=== PATIENT | male | born 1990 | race Caucasian/White ===

== ENCOUNTER 2023-12-06 09:29 | Outpatient (AMB) | payer OTHER, SELFPAY ==
--- NOTE | 2023-12-06 09:45 | A.OFFPC_ITS ---
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 Allergies No Known Allergies Allergy (Verified 12/06/23 09:45) Medication List - Last Reconciled 12/08/23 by Jeanine Escobar MD loratadine (Claritin) 10 mg PO DAILY Tobacco use date assessed: 12/06/23 Dental Screening Dental Screen Date: 12/06/23 Did you have a dental problem in the last 6 months where you did not have access to dental care?: No Was dental information given to patient?: Patient has dentist HPI HPI Comments History of Present Illness Details The patient is a 33 year old male with a past medial history of abdominal pain presenting to [facility]. Moved to [facility] about 3 months ago. 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 Happens at least a few times weekly. Worsens when seated. Mostly right lower quadrant. Had prior evaluation with ultrasound after worry for appendix. Reports softer than normal stools without diarrhea. Has not noticed blood in the in the stool. Denies nausea, vomiting. Notes 3-4 considerable episodes of gastroenteritis in the past year. Denies abnormal weight loss. History of melanoma in 2012. Has followed with dermatology every 6 months. needs derm in area. 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 1. Little interest or pleasure in doing things: not at all 2. Feeling down, depressed, or hopeless: not at all 3. Trouble falling or staying asleep, or sleeping too much: not at all 4. Feeling tired or having little energy: not at all 5. Poor appetite or overeating: not at all 6. Feeling bad about yourself - or that you are a failure or have let yourself or your family down: not at all 7. Trouble concentrating on things, such as reading the newspaper or watching television: not at all 8. Moving or speaking so slowly that other people could have noticed. Or the opposite - being so fidgety or restless that you have been moving around a lot more than usual: not at all 9. Thoughts that you would be better off or of hurting yourself in some way: not at all Total score: 0 Depression Screening Interpretation: Negative (neg) Depression Screening Done: Yes 87031 - PHQ-9 Billing: Yes Source: Developed by Drs. Alvarez Pantoja, Karina Griffiths, Brett Clancy and colleagues, with an educational javier from [employer]. Thrive Questionnaire Date Thrive assessed: 12/06/23 I am a: Patient What is your living situation today?: I have a steady place to live Within the past 12 months, did the food you bought not last and you didn't have the money to get more?: Never true Within the past 12 months, did you worry whether your food would run out before you got money to buy more?: Never true Do you have trouble paying for medicines?: No Do you have trouble getting transportation to medical appointments?: No Do you have trouble paying your heating and electricity bill?: No Do you have trouble taking care of your child, family member or friend?: No Do you have trouble with day-to-day activities such as bathing, preparing meals, shopping, managing finances, etc.?: No Are you currently unemployed and looking for a job?: No Are you interested in more education?: No Please select the resources that you would like help with: None THRIVE Score: 0 AUDIT C Alcohol Use Questionnaire (AUDIT-C) 1. How often do you have a drink containing alcohol?: 2-3 times a week 2. How many drinks containing alcohol do you have on a typical day when you are drinking?: 1 or 2 3. How often do you have six or more drinks on one occasion?: Never Total Score: 3 COURTNEY-7 AMB Questionnaire COURTNEY-7 Date COURTNEY - 7 assessed: 12/06/23 Feeling nervous, anxious, or on edge: 1 = Several days Not being able to stop or control worryin = Not at all Worrying too much about different things: 0 = Not at all Trouble relaxin = Several days Being so restless that it is hard to sit still: 0 = Not at all Becoming easily annoyed or irritable: 0 = Not at all Feeling afraid as if something awful might happen: 0 = Not at all Total COURTNEY-7 score (0-4 normal; 5-9 mild; 10-14 moderate; 15-21 severe): 2 Source: Developed by Drs. Alvarez Pantoja, Karina Griffiths, Brett Clancy and colleagues, with an educational javier from [employer]. COURTNEY-7 Assessment Billing COURTNEY-7 Assessment Tool: COURTNEY-7 Assessment 85141 Review of Systems Const Details: ROS CONSTITUTIONAL: Denies weight loss, fever and chills. HEENT: Denies changes in vision and hearing. RESPIRATORY: Denies SOB and cough. CV: Denies palpitations and CP GI: see HPI : Denies dysuria and urinary frequency. MSK: Denies new myalgia and joint pain. SKIN: Denies rash and pruritus. NEUROLOGICAL: Denies headache PSYCHIATRIC: Denies recent changes in mood. Physical exam (Primary Care) Vital Signs: Last Vital Signs Temp 97.7 F 12/06/23 09:48 Pulse 67 12/06/23 09:48 BP 120/88 12/06/23 09:48 Pulse Ox 96 12/06/23 09:48 Oxygen Delivery Method Room Air 12/06/23 09:48 PHYSICAL EXAM: GENERAL: Alert and oriented x 3. NAD EYES: EOMI. Anicteric. HENT: Moist mucous membranes. No scleral icterus. No cervical lymphadenopathy. LUNGS: Clear to auscultation bilaterally. CARDIOVASCULAR: Regular rate and rhythm. No murmur. No JVD. ABDOMEN: Soft, non-tender to pallpation EXTREMITIES: No edema. Non-tender. SKIN: No rashes or lesions. Warm. NEUROLOGIC: No focal neurological deficits. CN II-XII grossly intact PSYCHIATRIC: Cooperative. Appropriate mood and affect BMI result Body Mass Index 25.7 Tobacco/Smoking Status: Tobacco use Status Tobacco use date assessed 12/06/23 12/06/23 09:52 Patient Tobacco Use Status Never used Tobacco 12/06/23 09:53 e-Cigarette/Vaping Use Never Used 12/06/23 09:53 PHQ-9: PHQ-9 Score PHQ-9: Total score 0 12/06/23 10:18 Depression Screening Interpretation: Negative (neg) Thrive Assessment: Date of Thrive Assessment Date Thrive assessed 12/06/23 12/06/23 10:16 Assessment and Plan Assessment & Plan (1) Physical exam, annual: Code(s): Z00.00 - Encounter for general adult medical examination without abnormal findings Plan: The patient was evaluated today for annual preventive exam He was counseled about healthy lifestyle habits, including: Smoking cessation Limiting alcohol intake Receiving age-appropriate immunizations at recommended intervals Recommended screening in men includes: Human immunodeficiency virus infection in all men Hypertension in all men Diabetes mellitus Prostate cancer Colorectal cancer Lung cancer in menwith a history of tobacco use (2) Encounter to establish care: Code(s): Z76.89 - Persons encountering health services in other specified circumstances (3) Right lower quadrant pain: Code(s): R10.31 - Right lower quadrant pain Orders: Orders H pylori Ag Stool 12/06/23 R10.31 - Right lower quadrant pain, Z87.19 - Personal history of other diseases of the digestive system Pancreatic Elastase-1 12/06/23 R10.31 - Right lower quadrant pain, Z87.19 - Personal history of other diseases of the digestive system Celiac Disease Panel 12/06/23 R10.31 - Right lower quadrant pain, Z87.19 - Personal history of other diseases of the digestive system Comprehensive Met. Panel 12/06/23 R10.31 - Right lower quadrant pain, Z87.19 - Personal history of other diseases of the digestive system Amylase 12/06/23 R10.31 - Right lower quadrant pain, Z87.19 - Personal history of other diseases of the digestive system Calprotectin, Fecal 12/06/23 R10.31 - Right lower quadrant pain, Z87.19 - Personal history of other diseases of the digestive system CT abdomen pelvis wo/w IV con 12/06/23 R10.31 - Right lower quadrant pain, Z87.19 - Personal history of other diseases of the digestive system Lipid Panel 12/06/23 R10.31 - Right lower quadrant pain, Z87.19 - Personal history of other diseases of the digestive system Lipase 12/06/23 R10.31 - Right lower quadrant pain, Z87.19 - Personal history of other diseases of the digestive system Complete Blood Count Auto Diff 12/06/23 Z00.00 - Encounter for general adult medical examination without abnormal findings, Z87.19 - Personal history of other diseases of the digestive system Referrals Dermatology Referral Z85.820 - Personal history of malignant melanoma of skin Coding Level of Care Code Est Pt Prev Care 18-39y(14425) Diagnoses Physical exam, annual Z00.00 Encounter to establish care Z76.89 Right lower quadrant pain R10.31 Additional Codes COURTNEY-7 Assessment Billing - COURTNEY-7 Assessment Tool: COURTNEY-7 Assessment 23247 ([id number])
[2023-12-06 09:48] VITALS: BP 120/88; PULSE 67; TEMP 36.5; O2SAT 96; BMI 25.7
== END 2023-12-06 10:45 | disposition home or self-care (01) ==
PROVIDERS: PCP Internal Medicine; Visit Provider Internal Medicine
DX: Z00.00 Encounter for general adult medical examination without abnormal findings (principal); Z76.89 Persons encountering health services in other specified circumstances; R10.31 Right lower quadrant pain
CPT/HCPCS: 99395

== ENCOUNTER 2023-12-06 10:51 | Outpatient (REF) | payer OTHER, SELFPAY ==
[2023-12-06 14:31] LABS: MANUAL DIFF FLAG NO
[2023-12-06 14:37] LABS: Basophils Absolute Auto 0.1 X10*3/uL (0.0-0.2); Basophils Percent Auto 0.8 % (0-2); Eosinophils Absolute Auto 0.2 X10*3/uL (0.0-0.4); Eosinophils Percent Auto 2.4 % (0-4); Hematocrit 46.1 % (42.0-52.0); Hemoglobin 15.7 g/dl (14.0-18.0); Imm Gran Abs Auto 0.02 X10*3/uL (0.00-0.03); Imm Gran Pct Auto 0.3 % (0.0-0.4); Lymphocytes Absolute Auto 2.5 X10*3/uL (1.2-4.9); Lymphocytes Percent Auto 38.1 % (20-40); Mean Corpuscular HGB Conc 34.1 g/dl (31.0-36.0); Mean Corpuscular Hemoglobin 31.7 pg (27.0-33.0); Mean Corpuscular Volume 92.9 fL (80.0-98.0); Mean Platelet Volume 10.8 fL (9.4-12.4); Monocytes Absolute Auto 0.7 X10*3/uL (0.1-1.2); Monocytes Percent Auto 10.5 % (2-11); Neutrophils Absolute Auto 3.2 x10*3/uL (2.0-8.3); Neutrophils Percent Auto 47.9 % (45-73); Platelet Count 248 X10*3/uL (160-400); Red Blood Count 4.96 X10*6/uL (4.60-5.80); Red Cell Distribution Width 12.3 % (11.0-16.0); White Blood Count 6.6 X10*3/uL (4.8-10.8)
[2023-12-06 14:50] LABS: Alanine Aminotransferase 25 U/L (0-40); Albumin Level 4.7 g/dL (3.5-5.0); Alkaline Phosphatase 75 U/L (39-117); Amylase 54 U/L (28-100); Anion Gap 14 (12-20); Aspartate Amino Transferase 23 U/L (5-37); Bilirubin Total 0.5 mg/dL (0.0-1.0); Blood Urea Nitrogen 15 mg/dL (9-16); Calcium 9.4 mg/dL (8.4-10.2); Carbon Dioxide 26 mmol/L (22-29); Chloride 105 mmol/L (96-108); Cholesterol 174 mg/dL (<200); Estimated Glomerular Filt Rate > 60; Glucose Random 86 mg/dL (60-115); HDL Cholesterol 43 mg/dL (>40); LDL Cholesterol Calculated 115 mg/dL (<100); Lipase 23 U/L (8-78); Sodium 141 mmol/L (135-145); Total Protein 7.4 g/dL (6.5-8.0); Triglycerides 84 mg/dL (<150)
[2023-12-09 17:03] LABS: Immunoglobulin A 187 mg/dL (47-310); Transglutaminase IgA <1.0 U/mL
== END 2023-12-06 10:52 | disposition home or self-care (01) ==
LOC: HO.WFDLDS 10:51
PROVIDERS: Visit Provider Internal Medicine
DX: Z00.00 Encounter for general adult medical examination without abnormal findings (principal); R10.31 Right lower quadrant pain; Z87.19 Personal history of other diseases of the digestive system
CPT/HCPCS: 36415; 80053; 80061; 82150; 82784; 83690; 85025; 86364

== ENCOUNTER 2023-12-18 11:48 | Outpatient (REF) | payer OTHER, SELFPAY ==
[2023-12-25 21:39] LABS: Calprotectin, Fecal 9 mcg/g
[2023-12-27 16:44] LABS: Pancreatic Elastase-1 >500 mcg/g
== END 2023-12-18 11:49 | disposition home or self-care (01) ==
LOC: HO.LNP 11:48
PROVIDERS: Visit Provider Internal Medicine
DX: Z87.19 Personal history of other diseases of the digestive system (principal); R10.31 Right lower quadrant pain
CPT/HCPCS: 82656; 83993; 87338

== ENCOUNTER 2024-02-13 09:49 | Outpatient (REF) | payer OTHER, SELFPAY ==
--- NOTE | ~2024-02-13 | CT_ITS ---
EXAMINATION: CT ABDOMEN AND PELVIS WITH CONTRAST CLINICAL INFORMATION: Personal history of other diseases of the digestive system. COMPARISON: None available. TECHNIQUE: Multidetector volumetric images were obtained from the superior aspect of the liver through the pubic symphysis following administration 85 mL of Omnipaque 350 intravenous contrast. Sagittal and coronal reformatted images were obtained on the technologist's workstation. Oral contrast: Yes This CT examination was performed using dose optimization techniques as appropriate, variously including the following: *Automated exposure control *Adjustment of mA and/or kV according to patient size (this includes techniques or standardized protocols for targeted exams where dose is matched to indication/reason for exam; i.e. extremities or head) *Use of iterative reconstruction technique DLP: 85 mGy-cm FINDINGS: LUNG BASES: The visualized lung bases are unremarkable. LIVER, GALLBLADDER, AND BILIARY TREE: The liver is normal in size, shape, and attenuation. No focal hepatic lesion or biliary ductal dilatation is present. The gallbladder is unremarkable with no evidence of radiopaque gallstones, gallbladder wall thickening, or obvious pericholecystic inflammatory changes. PANCREAS: No discrete pancreatic mass or pancreatic ductal dilatation. SPLEEN: The spleen appears normal. ADRENAL GLANDS: 2.2 cm homogeneous low-attenuation nodule in the right adrenal gland is nonspecific by portal venous phase imaging. This is likely an adrenal adenoma. KIDNEYS AND URETERS: The kidneys are normal in size, shape, and attenuation. No hydronephrosis, hydroureter, or calculi seen. No perinephric stranding. BLADDER: Unremarkable. GASTROINTESTINAL TRACT: Small and large bowel are normal in caliber. The small and large bowel are normal in caliber. No evidence of bowel obstruction. No focal bowel wall thickening. No acute inflammatory changes. ABDOMINAL WALL: No significant hernia is appreciated. LYMPH NODES: No pathologically enlarged lymph nodes. VASCULAR: No aortic aneurysm. PELVIC VISCERA: Unremarkable. OSSEOUS STRUCTURES: No destructive osseous lesions. CT/CT abdomen pelvis w IV con IMPRESSION: No acute inflammatory changes in the abdomen/pelvis. Mild colonic diverticulosis without evidence of acute diverticulitis. 2.2 cm probable benign adenoma in the right adrenal gland. Recommend adrenal washout CT or chemical shift MRI. Fleischner guidelines were followed. Electronically signed by: Kenan Jarvis MD 02/24/2024 11:22 AM EDT
[2024-02-13] MEDS: iohexoL 350 MG/ML 100 ML INFUS..BTL IV (10:22)
== END 2024-02-13 09:50 | disposition home or self-care (01) ==
LOC: HO.CT 09:49
PROVIDERS: PCP Internal Medicine; Visit Provider Internal Medicine
DX: R10.31 Right lower quadrant pain (principal); Z87.19 Personal history of other diseases of the digestive system
CPT/HCPCS: 74177; Q9967

== ENCOUNTER 2024-03-13 10:19 | Outpatient (AMB) | payer OTHER, SELFPAY ==
--- NOTE | 2024-03-13 10:21 | A.OFFPC_ITS ---
Intake Visit Reasons: review results Intake Note: Patient would like to discuss his results today. 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 Happens at least a few times weekly. Worsens when seated. Mostly right lower quadrant. Had prior evaluation with ultrasound after worry for appendix pathology. Reports softer than normal stools without diarrhea. Has not noticed blood in the in the stool. Denies nausea, vomiting. Notes 3-4 considerable episodes of gastroenteritis in the past year. Denies abnormal weight loss. Labs and stool studies were normal. CT abd/pelvis with mild diverticulosis and likely benign right adrenal adenoma. History of melanoma in 2012. 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 Alvarez Pantoja, Karina Griffiths, Brett Clancy and colleagues, with an educational javier from [employer]. Physical exam (Primary Care) Tobacco/Smoking Status: Tobacco use Status Tobacco use date assessed 12/06/23 03/13/24 10:23 Patient Tobacco Use Status Never used Tobacco 03/13/24 10:23 e-Cigarette/Vaping Use Never Used 03/13/24 10:23 Thrive Assessment: Date of Thrive Assessment Date Thrive assessed 12/06/23 03/13/24 10:23 Telehealth Telehealth Telehealth Platform: Telephone Location of provider rendering services: practice address Location of patient: address on file Patient Identification confirmed using: Name, : Yes Telehealth method: voice only Patient verbally consented to treatment: Yes Patient verbally consented to billing insurance company: Yes Patient informed of any privacy concerns related to visit: Yes Minutes spent on Phone/Video with Pt.: 25 Assessment and Plan Assessment & Plan (1) Right lower quadrant pain: Code(s): R10.31 - Right lower quadrant pain Plan: Reviewed labs, imaging. Discussed could be having episodes of diverticular pain at times but may have no relations and pain could be more consistent with IBS etc. He declines GI referral at present. For benign appearing mass of the adrenal MRI has been recommended and is ordered. (2) Adrenal adenoma: Code(s): D35.00 - Benign neoplasm of unspecified adrenal gland Qualifiers: Laterality: right Qualified Code(s): D35.01 - Benign neoplasm of right adrenal gland (3) History of gastroenteritis: Code(s): Z87.19 - Personal history of other diseases of the digestive system Orders: Orders MR abdomen wo/w con 03/13/24 D35.00 - Benign neoplasm of unspecified adrenal gland Coding Level of Care Code Tele Est Pt Level 3 (14166) Diagnoses Right lower quadrant pain R10.31 Adenoma of right adrenal gland D35.01 Laterality: right History of gastroenteritis Z87.19
== END 2024-03-13 10:35 | disposition home or self-care (01) ==
LOC: HO.HMGFM 10:19
PROVIDERS: PCP Internal Medicine; Visit Provider Internal Medicine
DX: R10.31 Right lower quadrant pain (principal); D35.01 Benign neoplasm of right adrenal gland; Z87.19 Personal history of other diseases of the digestive system
CPT/HCPCS: 99213

== ENCOUNTER 2024-05-23 16:12 | Outpatient (REF) | payer OTHER, SELFPAY ==
[2024-05-23] MEDS: gadobutroL 10 ML VIAL IVPUSH (16:35)
== END 2024-05-23 16:13 | disposition home or self-care (01) ==
LOC: HO.MRI 16:12
PROVIDERS: PCP Internal Medicine; Visit Provider Internal Medicine
DX: D35.00 Benign neoplasm of unspecified adrenal gland (principal)
CPT/HCPCS: 74183; A9585

== ENCOUNTER 2024-09-11 07:52 | Outpatient (AMB) | payer OTHER, SELFPAY ==
--- NOTE | 2024-09-11 07:54 | MHC.OFFVIS ---
Vital Signs 09/11/24 07:55 Height 6 ft 3.98 in Weight 204 lb 5.896 oz BMI 24.9 BP 110/62 Pulse 62 Pulse Source Pulse Oximeter Pulse Oximetry (%) 100 Oxygen Delivery Method Room Air Intake Visit Reasons: Benign neoplasm of right adrenal gland Intake Note: New patient present today for Benign neoplasm of right adrenal gland office visit. Accompanied by: Self / Same As Patient Allergies No Known Allergies Allergy (Verified 09/11/24 07:57) Medication List - Last Reconciled 09/11/24 by Lisbeth Barroso MD loratadine (Claritin) 10 mg PO DAILY HPI Comments Details: 33-year-old male here today for initial evaluation of 2.4 cm right adrenal gland nodule. 02/13/2024: CT of the abdomen pelvis with contrast I reviewed the images which showed a 2.2 cm probably benign adenoma of the right adrenal gland. Low-attenuation nodule per report. 05/23/2024: MRI of the abdomen showed 2.4 X 1.5 cm right adrenal nodule was lost in signal with opposed phase imaging. Symptoms: Pt denies any weight gain,,severe acne ,headaches , , denies any hx of proximal muscle weakness, easy bruisability ,no abdominal striae,no headache,diaphoresis -No high blood pressure. -Denies any polyuria or polydipsia,no history of glucose intolerance,no abdominal pain ,skin infection or hyperpigmentation. -no recent vertebra or fragility fracture -No truncal obesity,facial plethora or recent mood change. No hx of depression. - no episodic palpitaions, pallor, abdominal pain, diaphoresis . -mild loss of libido, but feels a little bit low desire, busy with a toddler -no erectile dysfunction Physical exam General: sitting comfortably in no acute distress HEENT: normocephalic/atraumatic, Neck: supple, symmetrical Cardiac: normal heart sounds Pulm: normal breath sounds B/L, no added breath sounds Abd: not distended, no tenderness, no abdominal striae Extremities: no edema, no signs of myxedema Neuro: AAO x3, Speech: normal, no facial droop, moving all 4 extremities ? Laboratory Tests 12/06/23 10:54 Sodium 141 Potassium 4.0 Creatinine 0.79 Estimated GFR > 60 MR ABDOMEN WITHOUT AND WITH CONTRAST 05/23/24 CLINICAL INFORMATION: Adrenal lesion. COMPARISON: CT abdomen/pelvis February 13, 2024 TECHNIQUE: MR abdomen was performed without and with use of 10 mL intravenous Gadavist gadolinium contrast. Postcontrast images are performed in multiphase dynamic sequences. Imaging was performed in 3 planes. FINDINGS: LUNG BASES: No pleural or pericardial effusion. LIVER, GALLBLADDER, AND BILIARY TREE: The liver is normal in size, smooth in contour, and normal in signal. No focal hepatic lesion or biliary ductal dilatation is present. The gallbladder is contracted. PANCREAS: No ductal dilatation. SPLEEN: Not enlarged. ADRENAL GLANDS: 2.4 x 1.5 cm right adrenal nodule. There is loss in signal with opposed phase imaging. KIDNEYS AND URETERS: The kidneys are normal in size, shape, and enhance symmetrically. No hydronephrosis. No perinephric stranding. GASTROINTESTINAL TRACT: No bowel obstruction. No ascites or fluid collection. LYMPH NODES: No bulky lymphadenopathy. VASCULAR: Normal caliber abdominal aorta. MR/MR abdomen wo/w con IMPRESSION: 2.4 x 1.5 cm right adrenal nodule most likely representing an adenoma. Electronically signed by: Edwardo Cortez MD 07/13/2024 12:24 PM [facility] CT ABDOMEN AND PELVIS WITH CONTRAST 02/13/24 CLINICAL INFORMATION: Personal history of other diseases of the digestive system. COMPARISON: None available. TECHNIQUE: Multidetector volumetric images were obtained from the superior aspect of the liver through the pubic symphysis following administration 85 mL of Omnipaque 350 intravenous contrast. Sagittal and coronal reformatted images were obtained on the technologist's workstation. Oral contrast: Yes This CT examination was performed using dose optimization techniques as appropriate, variously including the following: *Automated exposure control *Adjustment of mA and/or kV according to patient size (this includes techniques or standardized protocols for targeted exams where dose is matched to indication/reason for exam; i.e. extremities or head) *Use of iterative reconstruction technique DLP: 85 mGy-cm FINDINGS: LUNG BASES: The visualized lung bases are unremarkable. LIVER, GALLBLADDER, AND BILIARY TREE: The liver is normal in size, shape, and attenuation. No focal hepatic lesion or biliary ductal dilatation is present. The gallbladder is unremarkable with no evidence of radiopaque gallstones, gallbladder wall thickening, or obvious pericholecystic inflammatory changes. PANCREAS: No discrete pancreatic mass or pancreatic ductal dilatation. SPLEEN: The spleen appears normal. ADRENAL GLANDS: 2.2 cm homogeneous low-attenuation nodule in the right adrenal gland is nonspecific by portal venous phase imaging. This is likely an adrenal adenoma. KIDNEYS AND URETERS: The kidneys are normal in size, shape, and attenuation. No hydronephrosis, hydroureter, or calculi seen. No perinephric stranding. BLADDER: Unremarkable. GASTROINTESTINAL TRACT: Small and large bowel are normal in caliber. The small and large bowel are normal in caliber. No evidence of bowel obstruction. No focal bowel wall thickening. No acute inflammatory changes. ABDOMINAL WALL: No significant hernia is appreciated. LYMPH NODES: No pathologically enlarged lymph nodes. VASCULAR: No aortic aneurysm. PELVIC VISCERA: Unremarkable. OSSEOUS STRUCTURES: No destructive osseous lesions. CT/CT abdomen pelvis w IV con IMPRESSION: No acute inflammatory changes in the abdomen/pelvis. Mild colonic diverticulosis without evidence of acute diverticulitis. 2.2 cm probable benign adenoma in the right adrenal gland. Recommend adrenal washout CT or chemical shift MRI. 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 Current occupational exposures/hazards: No Cognitive needs: No Hearing needs: No Vision needs: No Physical Exam Vital Signs: Last Vital Signs Pulse 62 09/11/24 07:55 BP 110/62 09/11/24 07:55 Pulse Ox 100 09/11/24 07:55 Oxygen Delivery Method Room Air 09/11/24 07:55 BMI result Body Mass Index 24.9 Assessment & Plan Assessment & Plan (1) Adrenal adenoma: Code(s): D35.00 - Benign neoplasm of unspecified adrenal gland Category: Medical Qualifiers: Laterality: right Qualified Code(s): D35.01 - Benign neoplasm of right adrenal gland Plan: --33-year-old male here today for initial evaluation of 2.4 cm right adrenal gland nodule. 02/13/2024: CT of the abdomen pelvis with contrast I reviewed the images which showed a 2.2 cm probably benign adenoma of the right adrenal gland. Low-attenuation nodule per report. 05/23/2024: MRI of the abdomen showed 2.4 X 1.5 cm right adrenal nodule was lost in signal with opposed phased imaging. Our first concern is to be sure that this is not an adrenal cortical carcinoma. ?Fortunately adrenal cortical carcinomas are exceedingly rare. ?However they do carry with them a very poor prognosis.?Given his clinical history with no deterioration in overall health; I have low suspicion for adrenocortical carcinoma to start with. ?Plus given features on the MRI with loss in signal with opposed phase imaging, this is consistent with a benign adenoma. We will plan to repeat imaging in 12 months to check on stability of size in the nodule which would be sometime around May 2025. ?? Another concern of adrenal masses is that they might be metastatic disease from another primary malignancy. ?This seems unlikely in his case. ?He is a lifelong non-smoker. ?A renal cancer which can metastasize to the adrenal glands probably would have been identified on his initial imaging study. ?Usually metastatic disease to the adrenal glands goes to both adrenal glands. ? ? Most adrenal masses are noncancerous or benign adrenal adenomas. ?However they can occasionally be functional and the hormones that are produced can cause clinical problems.??He has not been screened for any hormonal excess; although low clinical suspicion for pheochromocytoma; given the adrenal adenoma in question is greater than 1 cm ; I will err on the side of caution and screen with plasma free metanephrines with his blood work today. ? He does not have hypertension or history of hypokalemia however I will check aldosterone and plasma renin activity . ? We will check a 1 mg overnight dexamethasone suppression test .?However he has no clinical features of Dominique syndrome. ? The greatest likelihood is that this will be a nonfunctional benign adrenal adenoma that does not need to be removed. ?However we want to be careful that we have excluded all the other possibilities?first. ? In a review of published literature,Primary adrenal carcinoma 2 percent, metastases 0.7 percent -Benign Adrenal mass? Nonfunctioning 90%, subclinical [place]?s syndrome 6%, pheochromocytoma 3%, primary aldosteronism 0.6% Plan: -ordered baseline cortisol, acth, DHEA-S, aldosterone, plasma renin activity, BMP, plasma metanephrine and normetanephrine levels -ordered dexamethasone suppression tests -follow up in 4 weeks to discuss results -We will plan to repeat CT scan/MRI in May 2025 Plan I spent 45 minutes in reviewing the record, seeing the patient and documenting in the medical record. Orders: Orders Aldosterone Today D35.01 - Benign neoplasm of right adrenal gland DHEA Sulfate Today D35.01 - Benign neoplasm of right adrenal gland Basic Metabolic Panel Today D35.01 - Benign neoplasm of right adrenal gland Dexamethasone 09/18/24 D35.01 - Benign neoplasm of right adrenal gland Adrenocorticotropic Hormone Today D35.01 - Benign neoplasm of right adrenal gland Renin Today D35.01 - Benign neoplasm of right adrenal gland Metanephrines, Plasma Today D35.01 - Benign neoplasm of right adrenal gland Cortisol Random Today D35.01 - Benign neoplasm of right adrenal gland Cortisol Random 09/18/24 D35.01 - Benign neoplasm of right adrenal gland Adrenocorticotropic Hormone 09/18/24 D35.01 - Benign neoplasm of right adrenal gland Medications: New dexamethasone Take at 11 pm at night and go for blood work at 8 AM the next morning 1 mg PO DAILY 1 tab 0RF Patient Instructions: Do a baseline set of 8 AM blood work today Later next week do another set of blood work for dexamethasone suppression test Dexamethasone suppression test I would like you to do a dexamethasone suppression test to rule out Cushings syndrome. You will take a 1 mg pill of dexamethasone at 11 PM and then have a blood draw for cortisol at 8AM the next morning. It is important to make sure you take the dexamethasone at 11 PM and have the blood test as close to 8AM as possible. Follow up in 4 weeks to discuss results Coding Level of Care Code New Pt Level 4 (07489) Diagnoses Adenoma of right adrenal gland D35.01 Laterality: right Time Spent (min) 45
[2024-09-11 07:55] VITALS: BP 110/62; PULSE 62; O2SAT 100; BMI 24.9
--- OUTSIDE RECORDS SUMMARY | 2024-09-11 07:55 | XMS_ITS | Clinical Summary ---
Author Organization [facility] Address [address] [place], [place] [id number] Phone Care Team Providers Care Group Tester Name Role Phone Jeanine Escobar MD Primary Care Provider [phone] Allergies No known active allergies Medications Medication Sig Dispensed Refills Start Date End Date Status ketoconazole 2 % cream Apply topically daily. 30 g 02/13/2024 Active Active Problems No known active problems Social History Tobacco Use Types Packs/Day Years Used Date Smoking Tobacco: Never Smokeless Tobacco: Never Tobacco Cessation:Counseling Given: Not Answered Education Answer Date Recorded Are you interested in more education? Not on isabel e 02/13/2024 Are you concerned about learning? Not on file 02/13/2024 No 02/13/2024 No 02/13/2024 Digital Access Answer Date Recorded No 02/13/2024 No 02/13/2024 Reliable internet access at home? Not on file 02/13/2024 Device with a working camera? Not on file Sex and Gender Information Value Date Recorded Sex Assigned at Not on file Gender Identity Not on file Sexual Orientation Not on file Last Filed Vital Signs Vital Sign Reading Time Taken Comments Blood Pressure 122/80 04/22/2024 2:16 PM EDT Pulse 71 04/22/2024 2:16 PM EDT Temperature 36.7 ??C (98 ??F) 04/22/2024 2:16 PM EDT Respiratory Rate 16 04/22/2024 2:16 PM EDT Oxygen Saturation 98% 04/22/2024 2:16 PM EDT Inhaled Oxygen Concentration - - Weight - - Height - - Body Mass Index - - Plan of Treatment Health Maintenance Due Date Last Done Comments LIPID PANEL 1988 DEPRESSION SCREENING 2000 HEPATITIS B SCREENING 2006 HEPATITIS C SCREENING 2006 HIV ONE-TIME SCREENING (18-6 5 YEARS) 2006 HEPATITIS B VACCINES (1 of 3 - 19+ 3-dose series) 11/18/2007 02/20/2017, 09/24/2016, 08/27/2016 INFLUENZA VACCINE (#1) 2024 COVID-19 VACCINE ( - 2023-2 5 season) 2024 Adult Td,Tdap Booster 12/27/2026 12/27/2016 MENINGOCOCCAL VACCINES (ACWY) Aged Out 02/05/2013 No longer eligible based on patient's age to complete this topic SMOKING STATUS SCREENING (On ce After 26 Yrs) Completed 04/22/2024 HEPATITIS A VACCINES Aged Out No long er eligible based on patient's age to complete this topic HIB VACCINES Aged Out No longer eligi ble based on patient's age to complete this topic PNEUMOCOCCAL VACCINES (0-49 years) Aged Out No longer eligible b ased on patient's age to complete this topic Medical Devices Not on file Care Teams Group Tester Relationship Specialty Start Date End Date Jeanine Escobar MD [address] [place] [address] PCP - General Internal Medicine 02/13/24 Additional Source Comments The information contained in this document represents components of the legal health record. It is not the complete legal health record.[facility]
--- OUTSIDE RECORDS SUMMARY | 2024-09-11 07:56 | XMS_ITS | Clinical Summary ---
Author Organization [address] [facility] Address [address] [place] [address] Phone Care Team Providers Care Animal Pathology Teacher Name Role Phone Unavailable Primary Care Provider Unavailabl e Encounters Date Type Department Care Team Description 07/08/2024 Lab Requisition [facility] - Main Lab [address] [facility] [place] [address] Maury Ledesma III, MD Localized swelling, mass and lump, trunk from Last 3 Months Social History Tobacco Use Types Packs/Day Years Used Date Smoking Tobacco: Never Assessed Sex and Gender Information Value Date Recorded Sex Assigned at Not on file Legal Sex Male 12:14 PM EST Gender Identity Not on file Sexual Orientation Not on file Plan of Treatment Health Maintenance Due Date Last Done Comments DTaP,Tdap,and Td Vaccines (1 - Tdap) 11/18/2007 Hepatitis B Vaccines (1 of 3 - 19+ 3-dose series) 11/18/2007 COVID-19 Vaccine (2023-2 5 season) 2024 Influenza Vaccine (#1) 2024 Cholesterol Screening (Lipid Panel) 07/08/2024 Depression Screening 07/08/2024 HIV Screening 07/08/2024 Hepatitis C Screening 07/08/2024 Social Influencers of Health Screening 07/08/2024 HIB Vaccines Aged Out No longer eligi ble based on patient's age to complete this topic HPV Vaccines Aged Out No longer eligi ble based on patient's age to complete this topic Hepatitis A Vaccines Aged Out No long er eligible based on patient's age to complete this topic IPV Vaccines Aged Out No longer eligi ble based on patient's age to complete this topic MMR Vaccines Aged Out No longer eligi ble based on patient's age to complete this topic Meningococcal ACWY Vaccine Aged Out N o longer eligible based on patient's age to complete this topic Meningococcal B Vacine Aged Out No lo nger eligible based on patient's age to complete this topic Pneumococcal Vaccine: Pediat rics (0 to 5 Years) and At-Risk Patients (6 to 64 Years) Aged Out No longer eligible b ased on patient's age to complete this topic RSV Immunization Patients Un nyasia 20 months Aged Out No longer eligible b ased on patient's age to complete this topic Varicella Vaccines Aged Out No longer eligible based on patient's age to complete this topic Procedures Procedure Name Priority Date/Time Associated Diagnosis Comments TISSUE EXAM Routine 07/07/2024 Localized swelling, mass and lump, trunk from Last 3 Months Results * Tissue Exam (07/07/2024) Final Diagnosis Skin, Chest, Right, excision: -EPIDERMAL INCLUSION CYST 07/09/2024 11:25 AM [facility] Clinical Information Right chest cyst mass R22.2 07/09/2024 11:25 AM EST [facility] Gross Description A. Chest, Right, cyst: Labeled right chest cyst mass . Received in formalin is an unoriented, 1.9 x 0.6 x 0.5 cm awan-white skin ellipse awan subcutis. The margin is inked blue and the specimen is serially sections. The cut surfaces are yellow and fibrotic with a tiny probable cyst lining. The specimen is submitted in entirety one cassette, five pieces. TS 07/09/2024 11:25 AM [facility] Disclaimer Unless otherwise specified, all tissue is 10% NB formalin fixed and paraffin embedded. 07/09/2024 11:25 AM [facility] Tissue Thoracic structure / Unknown 07/07/2024 07/08/2024 12:18 PM EST us Maury Ledesma III, MD LAB PATHOLOGY ORDERABLES Fi nal Result [facility] [address] [place] [address], [place] [phone] from Last 3 Months Insurance [facility]
--- OUTSIDE RECORDS SUMMARY | 2024-09-11 07:56 | XMS_ITS | Encounter Summary ---
Author Organization [employer] Address [address] [place] [address] Care Team Providers Care Head Of Loss Prevention Name Role Phone Unavailable Primary Care Provider Unavailabl e Encounter Details Date Type Department Care Team (Late st Contact Info) Description 07/08/2024 Lab Requisition [facility] - Main Lab [address] [facility] [place] [address] Maury Ledesma III, MD [address] [place] [address] [place] [phone] Localized swelling, mass and lump, trunk Social History Tobacco Use Types Packs/Day Years Used Date Smoking Tobacco: Never Assessed Sex and Gender Information Value Date Recorded Sex Assigned at Not on file Legal Sex Male 12:14 PM EST Gender Identity Not on file Sexual Orientation Not on file documented as of this encounter Plan of Treatment Not on file documented as of this encounter Procedures Procedure Name Priority Date/Time Associated Diagnosis Comments TISSUE EXAM Routine 07/07/2024 Localized swelling, mass and lump, trunk documented in this encounter Results * Tissue Exam (07/07/2024) Final Diagnosis Skin, Chest, Right, excision: -EPIDERMAL INCLUSION CYST 07/09/2024 11:25 AM EST [facility] Clinical Information Right chest cyst mass R22.2 07/09/2024 11:25 AM [facility] Gross Description A. Chest, Right, [...] cassette, five pieces. TS 07/09/2024 11:25 AM EST [facility] Disclaimer Unless otherwise specified, all tissue is 10% NB formalin fixed and paraffin embedded. 07/09/2024 11:25 AM [facility] Tissue Thoracic structure / Unknown 07/07/2024 07/08/2024 12:18 PM EST us Maury Ledesma III, MD LAB PATHOLOGY ORDERABLES Fi nal Result [facility] [address] [place] [address], documented in this encounter Visit Diagnoses Diagnosis Localized swelling, mass and lump, trunk documented in this encounter
== END 2024-09-11 08:23 | disposition home or self-care (01) ==
LOC: HO.ENCR 07:53
PROVIDERS: PCP Internal Medicine; Visit Provider Student in an Organized Health Care Education/Training Program
DX: D35.01 Benign neoplasm of right adrenal gland (principal)
CPT/HCPCS: 99204

== ENCOUNTER 2024-09-11 07:52 | Outpatient (REF) | payer OTHER, SELFPAY ==
--- OUTSIDE RECORDS SUMMARY | 2024-09-11 08:38 | XMS_ITS | Clinical Summary ---
Author Organization [facility] Address [address] [place], [place] [id number] Phone Care Team Providers Care Glass Rolling Machine Operator Name Role Phone Jeanine Escobar MD Primary Care Provider [phone]- [phone] Allergies No known active allergies Medications Medication [...] Medical Devices Not on file Care Teams Glass Rolling Machine Operator Relationship Specialty Start Date End Date Jeanine Escobar MD [address] [place] [address] PCP - General Internal Medicine 02/13/24 Additional Source Comments The information contained in this document represents components of the legal health record. It is not the complete legal health record.[facility]
--- OUTSIDE RECORDS SUMMARY | 2024-09-11 08:38 | XMS_ITS | Clinical Summary ---
Author Organization [address] [facility] Address [address] [place] [address] Phone Care Team Providers Care Line Worker Name Role Phone Unavailable Primary Care Provider Unavailabl e Encounters Date Type Department Care Team Description 07/08/2024 Lab Requisition [facility] - Main Lab [address] [facility] [place] [address] Maury Ledesma III, MD Localized [...] excision: -EPIDERMAL INCLUSION CYST 07/09/2024 11:25 AM [facility] Clinical Information Right chest cyst mass R22.2 07/09/2024 11:25 AM EST [facility] Gross Description A. Chest, Right, [...] cassette, five pieces. TS 07/09/2024 11:25 AM [facility] Disclaimer Unless otherwise specified, all tissue is 10% NB formalin fixed and paraffin embedded. 07/09/2024 11:25 AM [facility] Tissue Thoracic structure / Unknown 07/07/2024 07/08/2024 12:18 PM EST us Maury Ledesma III, MD LAB PATHOLOGY ORDERABLES Fi nal Result [facility] [address] [place] [address], [place] [phone] from Last 3 Months Insurance [facility]
--- OUTSIDE RECORDS SUMMARY | 2024-09-11 08:38 | XMS_ITS | Encounter Summary ---
Author Organization [employer] Address [address] [place] [address] Care Team Providers Care Senior Sales Associate Name Role Phone Unavailable Primary Care Provider Unavailabl e Encounter Details Date Type Department Care Team (Late st Contact Info) Description 07/08/2024 Lab Requisition [facility] - Main Lab [address] [facility] [place] [address] Maury Ledesma III, MD [address] [place] [address] [place] [phone] Localized swelling, mass and lump, trunk Social [...] -EPIDERMAL INCLUSION CYST 07/09/2024 11:25 AM EST [facility] Clinical Information Right chest cyst mass R22.2 07/09/2024 11:[address] [facility] Gross Description A. Chest, Right, [...] five pieces. TS 07/09/2024 11:25 AM EST [facility] Disclaimer Unless otherwise specified, all tissue is 10% NB formalin fixed and paraffin embedded. 07/09/2024 11:[address] [facility] Tissue Thoracic structure / Unknown 07/07/2024 07/08/2024 12:18 PM EST us Maury Ledesma III, MD LAB PATHOLOGY ORDERABLES Fi nal Result [facility] [address] [place] [address], documented in this encounter Visit Diagnoses Diagnosis Localized swelling, mass and lump, trunk documented in this encounter
[2024-09-11 10:11] LABS: Anion Gap 11 (12-20); Blood Urea Nitrogen 22 mg/dL (9-16); Calcium 9.5 mg/dL (8.4-10.2); Carbon Dioxide 28 mmol/L (22-29); Chloride 106 mmol/L (96-108); Estimated Glomerular Filt Rate > 60; Glucose Random 87 mg/dL (60-115); Potassium 4.5 mmol/L (3.3-5.1); Sodium 140 mmol/L (135-145)
[2024-09-11 10:42] LABS: Cortisol Random 7.5 ug/dL
[2024-09-12 10:53] LABS: DHEA Sulfate 116 mcg/dL (93-415)
[2024-09-15 15:43] LABS: Adrenocorticotropic Hormone 6 pg/mL (6-50)
[2024-09-16 13:08] LABS: Metanephrine, Free 33 pg/mL (<=57); Normetanephrines, Free 33 pg/mL (<=148); Total Metanephrine, Free 66 pg/mL (<=205)
[2024-09-19 11:04] LABS: Renin 0.89 ng/mL/h (0.25-5.82)
== END 2024-09-11 07:53 | disposition home or self-care (01) ==
LOC: HO.LAB 07:52
PROVIDERS: PCP Internal Medicine; Visit Provider Student in an Organized Health Care Education/Training Program
DX: D35.01 Benign neoplasm of right adrenal gland (principal)
CPT/HCPCS: 36415; 80048; 82024; 82088; 82533; 82627; 83835; 84244

== ENCOUNTER 2024-09-19 08:02 | Outpatient (REF) | payer OTHER, SELFPAY ==
[2024-09-19 09:23] LABS: Cortisol Random < 1.0 ug/dL
[2024-09-23 14:58] LABS: Adrenocorticotropic Hormone <5 pg/mL (6-50)
[2024-10-06 08:18] LABS: Dexamethasone 193 ng/dL
== END 2024-09-19 08:03 | disposition home or self-care (01) ==
LOC: HO.LAB 08:02
PROVIDERS: PCP Internal Medicine; Visit Provider Student in an Organized Health Care Education/Training Program
DX: D35.01 Benign neoplasm of right adrenal gland (principal)
CPT/HCPCS: 36415; 80299; 82024; 82533

== ENCOUNTER 2024-10-12 08:10 | Outpatient (AMB) | payer OTHER, SELFPAY ==
[2024-10-12 08:13] VITALS: BP 124/78; PULSE 87; O2SAT 98; BMI 25.1
--- NOTE | 2024-10-12 08:13 | A.OFFVIS_ITS ---
Vital Signs 10/12/24 08:13 Height 6 ft 3.98 in Weight 205 lb 14.588 oz BMI 25.1 BP 124/78 Blood Pressure Location Lt brachial Position Sitting Pulse 87 Pulse Source Pulse Oximeter Pulse Oximetry (%) 98 Oxygen Delivery Method Room Air Intake Visit Reasons: Benign neoplasm of right adrenal gland Intake Note: Patient present today for benign neoplasm of right adrenal gland. Master At Arms Required: No Accompanied by: Self / Same As Patient Allergies No Known Allergies Allergy (Verified 10/12/24 08:18) HPI Comments Details: 33-year-old male here today for follow up of 2.4 cm right adrenal gland nodule. HPI from inital visit 02/13/2024: CT of the abdomen pelvis with contrast I reviewed the images which showed a 2.2 cm probably benign adenoma of the right adrenal gland. Low- attenuation nodule per report. 05/23/2024: MRI of the abdomen showed 2.4 X 1.5 cm right adrenal nodule was lost in signal with opposed phase imaging. Symptoms: Pt denies any weight gain,,severe acne ,headaches , , denies any hx of proximal muscle weakness, easy bruisability ,no abdominal striae,no headache,diaphoresis -No high blood pressure. -Denies any polyuria or polydipsia,no history of glucose intolerance,no abdominal pain ,skin infection or hyperpigmentation. -no recent vertebra or fragility fracture -No truncal obesity,facial plethora or recent mood change. No hx of depression. - no episodic palpitaions, pallor, abdominal pain, diaphoresis . -mild loss of libido, but feels a little bit low desire, busy with a toddler -no erectile dysfunction Interval history 09/11/2024: Labs showed low renin of 0.89, however aldosterone also low at 2, not concerning for primary hyperaldosteronism. Normal plasma metanephrine normetanephrine levels. Dexamethasone suppression test done 09/19/2024 also with normal results with cortisol suppressed to less than 1, acth less than 5. Physical exam General: sitting comfortably in no acute distress HEENT: normocephalic/atraumatic, Neck: supple, symmetrical Cardiac: normal heart sounds Pulm: normal breath sounds B/L, no added breath sounds Abd: not distended, no tenderness, no abdominal striae Extremities: no edema, no signs of myxedema Neuro: AAO x3, Speech: normal, no facial droop, moving all 4 extremities ? Laboratory Tests 12/06/23 10:54 Sodium 141 Potassium 4.0 Creatinine 0.79 Estimated GFR > 60 Laboratory Tests 09/11/24 09/19/24 09:00 08:16 Sodium 140 Potassium 4.5 Creatinine 0.91 Estimated GFR > 60 Renin 0.89 Aldosterone 2 DHEA Sulfate 116 Random Cortisol 7.5 < 1.0 ACTH 6 <5 L Plasma Free Metaneph 33 Plasma Free Normeta 33 Plas Total Metaneph 66 Dexamethasone 193 MR ABDOMEN WITHOUT AND WITH CONTRAST 05/23/24 CLINICAL INFORMATION: Adrenal lesion. COMPARISON: CT abdomen/pelvis February 13, 2024 TECHNIQUE: MR abdomen was performed without and with use of 10 mL intravenous Gadavist gadolinium contrast. Postcontrast images are performed in multiphase dynamic sequences. Imaging was performed in 3 planes. FINDINGS: LUNG BASES: No pleural or pericardial effusion. LIVER, GALLBLADDER, AND BILIARY TREE: The liver is normal in size, smooth in contour, and normal in signal. No focal hepatic lesion or biliary ductal dilatation is present. The gallbladder is contracted. PANCREAS: No ductal dilatation. SPLEEN: Not enlarged. ADRENAL GLANDS: 2.4 x 1.5 cm right adrenal nodule. There is loss in signal with opposed phase imaging. KIDNEYS AND URETERS: The kidneys are normal in size, shape, and enhance symmetrically. No hydronephrosis. No perinephric stranding. GASTROINTESTINAL TRACT: No bowel obstruction. No ascites or fluid collection. LYMPH NODES: No bulky lymphadenopathy. VASCULAR: Normal caliber abdominal aorta. MR/MR abdomen wo/w con IMPRESSION: 2.4 x 1.5 cm right adrenal nodule most likely representing an adenoma. Electronically signed by: Edwardo Cortez MD 07/13/2024 12:[address] [facility] [address] ABDOMEN AND PELVIS WITH CONTRAST 02/13/24 CLINICAL INFORMATION: Personal history of other diseases of the digestive system. COMPARISON: None available. TECHNIQUE: Multidetector volumetric images were obtained from the superior aspect of the liver through the pubic symphysis following administration 85 mL of Omnipaque 350 intravenous contrast. Sagittal and coronal reformatted images were obtained on the technologist's workstation. Oral contrast: Yes This CT examination was performed using dose optimization techniques as appropriate, variously including the following: *Automated exposure control *Adjustment of mA and/or kV according to patient size (this includes techniques or standardized protocols for targeted exams where dose is matched to indication/reason for exam; i.e. extremities or head) *Use of iterative reconstruction technique DLP: 85 mGy-cm FINDINGS: LUNG BASES: The visualized lung bases are unremarkable. LIVER, GALLBLADDER, AND BILIARY TREE: The liver is normal in size, shape, and attenuation. No focal hepatic lesion or biliary ductal dilatation is present. The gallbladder is unremarkable with no evidence of radiopaque gallstones, gallbladder wall thickening, or obvious pericholecystic inflammatory changes. PANCREAS: No discrete pancreatic mass or pancreatic ductal dilatation. SPLEEN: The spleen appears normal. ADRENAL GLANDS: 2.2 cm homogeneous low-attenuation nodule in the right adrenal gland is nonspecific by portal venous phase imaging. This is likely an adrenal adenoma. KIDNEYS AND URETERS: The kidneys are normal in size, shape, and attenuation. No hydronephrosis, hydroureter, or calculi seen. No perinephric stranding. BLADDER: Unremarkable. GASTROINTESTINAL TRACT: Small and large bowel are normal in caliber. The small and large bowel are normal in caliber. No evidence of bowel obstruction. No focal bowel wall thickening. No acute inflammatory changes. ABDOMINAL WALL: No significant hernia is appreciated. LYMPH NODES: No pathologically enlarged lymph nodes. VASCULAR: No aortic aneurysm. PELVIC VISCERA: Unremarkable. OSSEOUS STRUCTURES: No destructive osseous lesions. CT/CT abdomen pelvis w IV con IMPRESSION: No acute inflammatory changes in the abdomen/pelvis. Mild colonic diverticulosis without evidence of acute diverticulitis. 2.2 cm probable benign adenoma in the right adrenal gland. Recommend adrenal washout CT or chemical shift MRI. 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 Current occupational exposures/hazards: No Cognitive needs: No Hearing needs: No Vision needs: No Physical Exam Vital Signs: Last Vital Signs Pulse 87 10/12/24 08:13 BP 124/78 10/12/24 08:13 Pulse Ox 98 10/12/24 08:13 Oxygen Delivery Method Room Air 10/12/24 08:13 BMI result Body Mass Index 25.1 Assessment & Plan Assessment & Plan (1) Adrenal adenoma: Code(s): D35.00 - Benign neoplasm of unspecified adrenal gland Category: Medical Qualifiers: Laterality: right Qualified Code(s): D35.01 - Benign neoplasm of right adrenal gland Plan: --33-year-old male here today for initial evaluation of 2.4 cm right adrenal gland nodule. 02/13/2024: CT of the abdomen pelvis with contrast I reviewed the images which showed a 2.2 cm probably benign adenoma of the right adrenal gland. Low- attenuation nodule per report. 05/23/2024: MRI of the abdomen showed 2.4 X 1.5 cm right adrenal nodule was lost in signal with opposed phased imaging. Our first concern is to be sure that this is not an adrenal cortical carcinoma. ?Fortunately adrenal cortical carcinomas are exceedingly rare. ?However they do carry with them a very poor prognosis.?Given his clinical history with no deterioration in overall health; I have low suspicion for adrenocortical carcinoma to start with. ?Plus given features on the MRI with loss in signal with opposed phase imaging, this is consistent with a benign adenoma. We will plan to repeat imaging in 12 months to check on stability of size in the nodule which would be sometime around May 2025. ?? 09/11/2024: Labs showed low renin of 0.89, however aldosterone also low at 2, not concerning for primary hyperaldosteronism. Normal plasma metanephrine normetanephrine levels. Dexamethasone suppression test done 09/19/2024 also with normal results with cortisol suppressed to less than 1, acth less than 5. All of this is consistent with a nonfunctioning adenoma. Plan: -ordered repeat CT scan in May 2025 -follow up in May 2025 to discuss results Plan See above Orders: Orders CT adrenal wo/w IV con 05/03/25 D35.01 - Benign neoplasm of right adrenal gland Creatinine 04/26/25 D35.01 - Benign neoplasm of right adrenal gland Blood Urea Nitrogen 04/26/25 D35. - Benign neoplasm of right adrenal gland Patient Instructions: Do Ct scan in May 2025 and followup in May 2025 to discuss results Coding Level of Care Code Est Pt Level 3 (14090) Diagnoses Adenoma of right adrenal gland D35.01 Laterality: right
--- OUTSIDE RECORDS SUMMARY | 2024-10-12 08:31 | XMS_ITS | Clinical Summary ---
Author Organization [facility] Address [address] [place], [place] [id number] Phone Care Team Providers Care Army Helicopter Pilot Name Role Phone Jeanine Escobar MD Primary Care Provider [phone] Allergies No known active allergies Medications Medication [...] Medical Devices Not on file Care Teams Army Helicopter Pilot Relationship Specialty Start Date End Date Jeanine Escobar MD [address] [place] [address] PCP - General Internal Medicine 02/13/24 Additional Source Comments The information contained in this document represents components of the legal health record. It is not the complete legal health record.[facility]
--- OUTSIDE RECORDS SUMMARY | 2024-10-12 08:31 | XMS_ITS | Clinical Summary ---
Author Organization [facility] Address [address] [place] [address] Phone Care Team Providers Care Senior Nurse Manager Name Role Phone Unavailable Primary Care Provider Unavailabl e Social History Tobacco Use Types Packs/Day Years [...] - 19+ 3-dose series) 11/18/2007 COVID-19 Vaccine ( - 2023-2 5 season) 2024 Cholesterol Screening (Lipid Panel) 07/08/2024 Depression Screening 07/08/2024 HIV Screening 07/08/2024 Hepatitis C Screening 07/08/2024 Social Influencers of Health Screening 07/08/2024 Influenza Vaccine (Season Ended) 2025 HIB Vaccines Aged Out No longer eligi [...] age to complete this topic Meningococcal B Vaccine Aged Out No l onger eligible based on patient's age to complete [...] on patient's age to complete this topic Insurance [facility]
--- OUTSIDE RECORDS SUMMARY | 2024-10-12 08:31 | XMS_ITS | Encounter Summary ---
Author Organization [facility] Address [address] [place] [address] Care Team Providers Care Tier And Detonator Name Role Phone Unavailable Primary Care Provider Unavailabl e Encounter Details Date Type Department Care Team (Late st Contact Info) Description 07/08/2024 Lab Requisition [facility] - Main Lab [address] [facility] [place] [address] Maury Ledesma III, MD [address] [place] [address] [place] [phone] Localized swelling, mass and lump, trunk Social [...] -EPIDERMAL INCLUSION CYST 07/09/2024 11:25 AM EST [facility] Clinical Information Right chest cyst mass R22.2 07/09/2024 11:25 AM [facility] Gross Description A. Chest, Right, [...] fixed and paraffin embedded. 07/09/2024 11:25 AM [facility] Tissue Thoracic structure / Unknown 07/07/2024 07/08/2024 12:18 PM EST us Maury Ledesma III, MD LAB PATHOLOGY ORDERABLES Fi nal Result [facility] [address] [place] [address], documented in this encounter Visit Diagnoses Diagnosis Localized swelling, mass and lump, trunk documented in this encounter
== END 2024-10-12 08:24 | disposition home or self-care (01) ==
LOC: HO.ENCR 08:10
PROVIDERS: PCP Internal Medicine; Visit Provider Student in an Organized Health Care Education/Training Program
DX: D35.01 Benign neoplasm of right adrenal gland (principal)
CPT/HCPCS: 99213

== ENCOUNTER → 2024-10-12 08:10 | Outpatient (BNVA) | payer OTHER, SELFPAY | PROVIDERS: PCP Internal Medicine; Visit Provider Student in an Organized Health Care Education/Training Program ==

== ENCOUNTER 2025-03-30 15:22 | Outpatient (AMB) | payer OTHER, SELFPAY ==
--- NOTE | 2025-03-30 15:27 | MHC.PC.OV ---
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 Patient has had very infrequent flares of this since last year. CT abd/pelvis with mild diverticulosis and likely benign right adrenal adenoma. Labs wnl Endocrine: Adrenal adenoma being followed by endocrine Dr Barroso History of melanoma in 2012. Saw [facility] x 2 since last visit. No worrisome lesions. Checks moles etc Tdap ~7 years ago ROS CONSTITUTIONAL: Denies weight loss, fever and chills. HEENT: Denies changes in vision and hearing. RESPIRATORY: Denies SOB and cough. CV: Denies palpitations and CP GI: see HPI : Denies dysuria and urinary frequency. MSK: Denies new myalgia and joint pain. SKIN: Denies rash and pruritus. NEUROLOGICAL: Denies headache PSYCHIATRIC: Denies recent changes in mood. PHYSICAL EXAM: GENERAL: Alert and oriented x 3. NAD EYES: EOMI. Anicteric. HENT: Moist mucous membranes. No scleral icterus. No cervical lymphadenopathy. LUNGS: Clear to auscultation bilaterally. CARDIOVASCULAR: Regular rate and rhythm. No murmur. No JVD. ABDOMEN: Soft, non-tender +bs EXTREMITIES: No edema. Non-tender. SKIN: No rashes or lesions. Warm. NEUROLOGIC: No focal neurological deficits. CN II-XII grossly intact PSYCHIATRIC: Cooperative. 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 1. Little interest or pleasure in doing things: not at all 2. Feeling down, depressed, or hopeless: not at all 3. Trouble falling or staying asleep, or sleeping too much: not at all 4. Feeling tired or having little energy: not at all 5. Poor appetite or overeating: not at all 6. Feeling bad about yourself - or that you are a failure or have let yourself or your family down: not at all 7. Trouble concentrating on things, such as reading the newspaper or watching television: not at all 8. Moving or speaking so slowly that other people could have noticed. Or the opposite - being so fidgety or restless that you have been moving around a lot more than usual: not at all 9. Thoughts that you would be better off or of hurting yourself in some way: not at all Total score: 0 Depression Screening Interpretation: Negative Depression Screening Done: Yes 73878 - PHQ-9 Billing: Yes Source: Developed by Drs. Alvarez Pantoja, Karina Griffiths, Brett Clancy and colleagues, with an educational javier from [employer]. Thrive Questionnaire Date Thrive assessed: 12/06/23 I am a: Patient What is your living situation today?: I have a steady place to live Within the past 12 months, did the food you bought not last and you didn't have the money to get more?: Never true Within the past 12 months, did you worry whether your food would run out before you got money to buy more?: Never true Do you have trouble paying for medicines?: No Do you have trouble getting transportation to medical appointments?: No Do you have trouble paying your heating and electricity bill?: No Do you have trouble taking care of your child, family member or friend?: No Do you have trouble with day-to-day activities such as bathing, preparing meals, shopping, managing finances, etc.?: No Are you currently unemployed and looking for a job?: No Are you interested in more education?: No Please select the resources that you would like help with: None Currently or been in a relationship where the following occur: No concerns reported THRIVE Score: 0 AUDIT C Alcohol Use Questionnaire (AUDIT-C) 1. How often do you have a drink containing alcohol?: Monthly or less 2. How many drinks containing alcohol do you have on a typical day when you are drinking?: 1 or 2 3. How often do you have six or more drinks on one occasion?: Never Total Score: 1 COURTNEY-7 AMB Questionnaire COURTNEY-7 Date COURTNEY - 7 assessed: 12/06/23 Feeling nervous, anxious, or on edge: 1 = Several days Not being able to stop or control worryin = Not at all Worrying too much about different things: 0 = Not at all Trouble relaxin = Several days Being so restless that it is hard to sit still: 0 = Not at all Becoming easily annoyed or irritable: 0 = Not at all Feeling afraid as if something awful might happen: 0 = Not at all Total COURTNEY-7 score (0-4 normal; 5-9 mild; 10-14 moderate; 15-21 severe): 2 Source: Developed by Drs. Alvarez Pantoja, Karina Griffiths, Brett Clancy and colleagues, with an educational javier from [employer]. Physical exam (Primary Care) Vital Signs: Last Vital Signs Pulse 64 03/30/25 15:31 Resp 14 03/30/25 15:31 BP 122/72 03/30/25 15:31 Pulse Ox 97 03/30/25 15:31 Oxygen Delivery Method Room Air 03/30/25 15:31 BMI result Body Mass Index 25.3 Tobacco/Smoking Status: Tobacco use Status Tobacco use date assessed 03/30/25 03/30/25 15:28 Patient Tobacco Use Status Never used Tobacco 03/30/25 15:28 e-Cigarette/Vaping Use Never Used 03/30/25 15:28 PHQ-9: PHQ-9 Score PHQ-9: Total score 0 03/31/25 14:52 Depression Screening Interpretation: Negative Thrive Assessment: Date of Thrive Assessment Date Thrive assessed 12/06/23 03/30/25 15:28 Currently or been in a relationship where the following occur: No concerns reported Coding Level of Care Code Est Pt Prev Care 18-39y(72764) Diagnoses Physical exam, annual Z00.00 Adenoma of right adrenal gland D35.01 Laterality: right History of melanoma Z85.820 Additional Codes PHQ-9 - 04446 - PHQ-9 Billing: Yes ([id number]) Assessment & Plan Assessment & Plan (1) Physical exam, annual: Code(s): Z00.00 - Encounter for general adult medical examination without abnormal findings Category: Medical (2) Adrenal adenoma: Code(s): D35.00 - Benign neoplasm of unspecified adrenal gland Category: Medical Qualifiers: Laterality: right Qualified Code(s): D35.01 - Benign neoplasm of right adrenal gland (3) History of melanoma: Code(s): Z85.820 - Personal history of malignant melanoma of skin Category: Medical Plan 34 year old male with CPE Interval history reviewed Preventive measures for age discussed Follow up endocrine for adenoma Continue folllow up with dermatology Labs & cpe one year
[2025-03-30 15:31] VITALS: BP 122/72; PULSE 64; RESP 14; O2SAT 97; BMI 25.3
--- OUTSIDE RECORDS SUMMARY | 2025-03-30 16:39 | XMS_ITS | Clinical Summary ---
Author Organization [facility] Address [address] [place] [id number] Phone Care Team Providers Care Logging Engineer Name Role Phone Jeanine Jones MD Primary Care Provider + [phone] Allergies No known active allergies Medications ketoconazole 2 % cream Apply topically daily. 30 g Active Active Problems No known active problems [...] at Not on file Legal Sex Male 4:18 PM EDT Gender Identity Not on file Sexual Orientation Not on file Last Filed Vital Signs Vital Sign Reading Time Taken Comments Blood Pressure 122/80 04/22/2024 2:16 PM EDT Pulse 71 04/22/2024 2:16 PM EDT Temperature 36.7 C (98 F) 04/22/2024 2:16 PM EDT Respiratory Rate 16 04/22/2024 2:16 PM EDT Oxygen Saturation 98% 04/22/2024 2:16 PM EDT Inhaled Oxygen Concentration - - Weight - - Height - - Body Mass Index - - Plan of Treatment Health Maintenance Due Date Last Done Comments LIPID PANEL 1988 DEPRESSION SCREENING 2000 HEPATITIS C SCREENING 2006 HIV ONE-TIME SCREENING (18-6 5 YEARS) 2006 INFLUENZA VACCINE (#1) 2025 COVID-19 VACCINE ( - 2023-2 5 season) 2025 Adult Td,Tdap Booster 12/27/2026 12/27/2016 MENINGOCOCCAL VACCINES [...] on patient's age to complete this topic MENINGOCOCCAL VACCINES (B) Aged Out N o longer eligible based on patient's age to complete this topic PNEUMOCOCCAL VACCINES (0-49 years) Aged Out No longer eligible based on patient's age to complete this topic Medical Devices Not on file Insurance [address] [place] [address] [place] [address] [place] [place] Address: [place] [address] Care Teams Logging Engineer Relationship Specialty Start Date End Date Jeanine Jones MD PCP - General Internal Medicine 02/13/24 Additional Source Comments The information contained in this document represents components of the legal health record. It is not the complete legal health record.[facility]
--- OUTSIDE RECORDS SUMMARY | 2025-03-30 16:39 | XMS_ITS | Clinical Summary ---
Author Organization [facility] Address [address] [place] [address] Phone Care Team Providers Care Traffic Manager Name Role Phone Unavailable Primary Care [...] of 3 - 19+ 3-dose series) 11/18/2007 Depression Screening 07/01/2024 Cholesterol Screening (Lipid Panel) 07/08/2024 HIV Screening 07/08/2024 Hepatitis C Screening 07/08/2024 Social Influencers of Health Screening 07/08/2024 COVID-19 Vaccine ( - 2023-2 5 season) 2025 Influenza Vaccine (#1) 2025 HIB Vaccines Aged Out No longer [...] 5 Years) and At-Risk Patients (6 to 49 Years) Aged Out No longer eligible b ased on patient's age to complete this topic RSV Immunization Patients Un nyasia 20 months Aged Out No longer eligible b ased on patient's age to complete this topic Varicella Vaccines Aged Out No longer eligible based on patient's age to complete this topic Insurance [facility]
--- OUTSIDE RECORDS SUMMARY | 2025-03-30 16:39 | XMS_ITS | Encounter Summary ---
Author Organization [facility] Address [address] [place] [address] Care Team Providers Care General Expeditor Name Role Phone Unavailable Primary Care Provider Unavailabl e Encounter Details Date Type Department Care Team (Late st Contact Info) Description 07/08/[address] [facility] - Main Lab [address] [facility] [place] [address] Maury Ledesma III, MD [address] [place] [address] [place] [phone] Localized swelling, mass and lump, trunk Social [...] -EPIDERMAL INCLUSION CYST 07/09/2024 11:25 AM EST [facility] ([facility]) [facility] Clinical Information Right chest cyst mass R22.2 07/09/2024 11:25 AM [facility] Gross Description A. Chest, Right, cyst: [...] five pieces. TS 07/09/2024 11:25 AM EST [facility] Disclaimer Unless otherwise specified, all tissue is 10% NB formalin fixed and paraffin embedded. 07/09/2024 11:25 AM [facility] Tissue Thoracic structure / Unknown 07/07/2024 07/08/2024 12:18 PM EST us Maury Ledesma III, MD LAB PATHOLOGY ORDERABLES Fi nal Result [facility] [address] [place] [address], documented in this encounter Visit Diagnoses Diagnosis Localized swelling, mass and lump, trunk documented in this encounter
== END 2025-03-30 15:49 | disposition home or self-care (01) ==
LOC: HO.HMCFM 15:23
PROVIDERS: PCP Internal Medicine; Visit Provider Internal Medicine
DX: Z00.00 Encounter for general adult medical examination without abnormal findings (principal); D35.01 Benign neoplasm of right adrenal gland; Z85.820 Personal history of malignant melanoma of skin

== ENCOUNTER → 2025-03-30 15:22 | Outpatient (BNVA) | payer OTHER, SELFPAY | PROVIDERS: PCP Internal Medicine; Visit Provider Internal Medicine | DX: Z00.00 Encounter for general adult medical examination without abnormal findings (principal); D35.01 Benign neoplasm of right adrenal gland; Z85.820 Personal history of malignant melanoma of skin; Z13.31 Encounter for screening for depression | CPT/HCPCS: 96127 ==

== ENCOUNTER 2025-05-26 08:12 | Outpatient (REF) | payer OTHER, SELFPAY ==
--- NOTE | ~2025-05-26 | CT_ITS ---
EXAMINATION: CT ABDOMEN WITHOUT CONTRAST CLINICAL INFORMATION: Benign neoplasm of right adrenal gland COMPARISON: MRI 04/22/2024, CT 04/14/2024 TECHNIQUE: Contiguous axial thin section helical images of the abdomen were performed without contrast. The data set was reformatted in the coronal and sagittal planes and reviewed on an independent workstation. This CT examination was performed using dose optimization techniques as appropriate, variously including the following: *Automated exposure control *Adjustment of mA and/or kV according to patient size (this includes techniques or standardized protocols for targeted exams where dose is matched to indication/reason for exam; i.e. extremities or head) *Use of iterative reconstruction technique FINDINGS: LUNG BASES: Lung bases are clear. No or effusion LIVER, GALLBLADDER, BILIARY TREE: Partially imaged liver. No suspicious lesions. No intrahepatic biliary duct dilatation. Gallbladder is nondistended limiting evaluation. No radiodense gallstone seen. No intrahepatic or extrahepatic biliary duct dilatation. PANCREAS: Unremarkable. No acute inflammatory changes. SPLEEN: Partially imaged, imaged portions appear unremarkable. ADRENAL GLANDS: Redemonstrated is a 2.2 x 1.5 cm homogeneous low-attenuation nodule in the right adrenal gland. Hounsfield measurements -16. Left adrenal gland appears unremarkable. KIDNEYS: Partially imaged kidneys, appearing unremarkable. BOWEL LOOPS: Partially imaged, no acute findings. LYMPH NODES: No bulky adenopathy VASCULAR: Normal caliber aorta BONES: No acute findings CT/CT abdomen wo IV con IMPRESSION: Redemonstrated 2.2 x 1.5 cm right adrenal nodule, with Hounsfield measurements most likely representing an adenoma. No interval change in size as compared to previous. Fleischner guidelines were followed. Electronically signed by: Eliseo Parra MD 05/28/2025 08:53 AM [facility]
--- OUTSIDE RECORDS SUMMARY | 2025-05-26 08:26 | XMS_ITS | Clinical Summary ---
Author Organization [address] [facility] Address [address] [place] [address] Phone Care Team Providers Care Rodeo Performer Name Role Phone Unavailable Primary Care Provider [...] of 3 - 19+ 3-dose series) 11/18/2007 HPV Vaccines (1 - 3-dose SCD M series) 11/18/2015 Depression Screening 07/01/2024 Cholesterol Screening (Lipid Panel) 07/08/2024 HIV Screening 07/08/2024 Hepatitis C Screening 07/08/2024 Social Influencers of Health Screening 07/08/2024 COVID-19 Vaccine (1 - 2024-2 6 season) 2025 Influenza Vaccine (#1) 2025 RSV Immunization Adult Patie nts (1 - 1-dose 75+ series) 11/18/2063 HIB Vaccines Aged Out No longer eligi [...] patient's age to complete this topic Insurance [facility]
--- OUTSIDE RECORDS SUMMARY | 2025-05-26 08:26 | XMS_ITS | Encounter Summary ---
Author Organization [employer] Address [address] [place] [address] Care Team Providers Care Senior Ui Developer Name Role Phone Unavailable Primary Care Provider Unavailabl e Encounter Details Date Type Department Care Team (Late st Contact Info) Description 07/08/2024 Lab Requisition [facility] - Main Lab [address] [facility] [place] [address] Maury Ledesma III, MD [address] [place] [address] [place] [phone] Localized swelling, mass and lump, trunk Social [...] -EPIDERMAL INCLUSION CYST 07/09/2024 11:25 AM EST [facility] ([facility]) [facility] Clinical Information Right chest cyst mass R22.2 07/09/2024 11:25 AM [facility] Gross Description A. Chest, [...] five pieces. TS 07/09/2024 11:25 AM EST [facility] Disclaimer Unless otherwise specified, all tissue is 10% NB formalin fixed and paraffin embedded. 07/09/2024 11:25 AM [facility] Tissue Thoracic structure / Unknown 07/07/2024 07/08/2024 12:18 PM EST us Maury Ledesma III, MD LAB PATHOLOGY ORDERABLES Fi nal Result [facility] [address] [place] [address], documented in this encounter Visit Diagnoses Diagnosis Localized swelling, mass and lump, trunk documented in this encounter
--- OUTSIDE RECORDS SUMMARY | 2025-05-26 08:26 | XMS_ITS | Clinical Summary ---
Author Organization [facility] Address [address] [place] [id number] Phone Care Team Providers Care Steward/Stewardess Second Class Name Role Phone Jeanine Jones MD Primary Care Provider + [phone] Allergies No known active allergies Medications ketoconazole [...] VACCINE (#1) 2025 COVID-19 VACCINE ( - 2024-2 6 season) 2025 Adult Td,Tdap Booster 12/27/2026 12/27/2016 [...] Medical Devices Not on file Insurance [address] [place], [place] [id number] [place], [place] [id number] Care Teams Steward/Stewardess Second Class Relationship Specialty Start Date End Date Jeanine Jones MD PCP - General Internal Medicine 02/13/24 Additional Source Comments The information contained in this document represents components of the legal health record. It is not the complete legal health record.[facility]
== END 2025-05-26 08:13 | disposition home or self-care (01) ==
LOC: HO.CT 08:12
PROVIDERS: PCP Internal Medicine; Visit Provider Student in an Organized Health Care Education/Training Program
DX: D35.01 Benign neoplasm of right adrenal gland (principal)
CPT/HCPCS: 74150

== ENCOUNTER → 2025-05-26 08:42 | Outpatient (BNV) | payer OTHER, SELFPAY | PROVIDERS: PCP Internal Medicine; Visit Provider Radiology Diagnostic Ultrasound | DX: D35.01 Benign neoplasm of right adrenal gland (principal) | CPT/HCPCS: 74150 ==